=== PATIENT | male | born 1995 | race Caucasian/White ===

== ENCOUNTER 2018-09-16 18:40 | Emergency (ER) | payer MEDICAID ==
[~2018-09-16] VITALS: Ht 177.8 cm; Wt 70.4 kg
[~2018-09-16 18:40] MED LIST: DIPH25TA62 PO
[2018-09-16 18:47] VITALS: BP 117/70
[2018-09-16] MEDS ORDERED: acetaminophen 325mg tablet PO ONE (18:55)
[2018-09-16] MEDS ORDERED: ibuprofen tablet 400 MG TABLET PO ONE (20:55)
== END 2018-09-16 21:40 | disposition left against medical advice (07) ==
LOC: ER 18:40
DX: R50.9 Fever, unspecified (principal); Z53.21 Procedure and treatment not carried out due to patient leaving prior to being seen by health care provider

== ENCOUNTER 2021-02-21 22:01 | Inpatient (IN) | payer MEDICAID ==
[~2021-02-21] VITALS: Ht 175.3 cm; Wt 75.0 kg
[2021-02-21] MEDS ORDERED: ondansetron/PF 4mg/2ml inj IV ONE (22:10)
[2021-02-21] MEDS ORDERED: normal saline 1000ML IV soln IVB ONE (22:10)
[2021-02-21] MEDS ORDERED: naloxone 2mg/2ml inj 2 MG in normal saline 500ml IV soln 498 ML IV SCH (22:15)
--- NOTE | 2021-02-21 22:19 | NUR ---
Mary gtt ordered, but Dr. Xiong reports ok to hold gtt until pt showing signs of respiratory depression. ekg completed. pt remains alert and making needs know (give faviola a blanket, im cold". moaning intermittently and dozing off intermittently. dr. cerna at bedside to evaluate.
[2021-02-21 22:30] LABS: BASOPHILS % (AUTO) 0.3 % (0-1); EOSINOPHILS # (AUTO) 0.2 X10'3 (0-0.9); HEMOGLOBIN 14.7 g/dl (14.0-17.9); LYMPHOCYTES # (AUTO) 2.3 X10'3 (1.1-4.8); LYMPHOCYTES % (AUTO) 24.6 % (21-51); MEAN CORPUSCULAR HEMOGLOBIN 30.6 PG (27.0-31.0); MEAN CORPUSCULAR HGB CONC 34.2 g/dL (33.0-36.5); MEAN CORPUSCULAR VOLUME 89.7 FL (78-98); MEAN PLATELET VOLUME 7.2 FL (7.4-10.4); MONOCYTES # (AUTO) 0.6 X10'3 (0-0.9); NEUTROPHILS # (AUTO) 6.2 X10'3 (1.8-7.7); NEUTROPHILS % (AUTO) 67.1 % (42-75); PLATELET COUNT 265 X10'3 (140-440); RED CELL DISTRIBUTION WIDTH 12.5 % (11.5-14.5); WHITE BLOOD COUNT 9.2 X10'3 (4.5-11.0)
[2021-02-21 22:42] LABS: ALANINE AMINOTRANSFERASE 30 U/L (12-78); ALBUMIN 3.6 G/DL (3.4-5.0); ALBUMIN/GLOBULIN RATIO 0.9 (1.1-1.5); ALKALINE PHOSPHATASE 88 IU/L (46-116); ANION GAP 5 (8-16); ASPARTATE AMINO TRANSFERASE 20 U/L (10-37); BILIRUBIN,TOTAL 0.2 MG/DL (0.1-1.0); BLOOD UREA NITROGEN 15 MG/DL (7-18); BUN/CREATININE RATIO 13.4 (5.4-32.0); CALCIUM 8.6 MG/DL (8.5-10.1); CHLORIDE 106 MMOL/L (99-107); CREATININE 1.12 MG/DL (0.60-1.10); GLUCOSE 99 MG/DL (70-104); POTASSIUM 3.9 MMOL/L (3.5-5.1); SODIUM 141 MMOL/L (135-145); TOTAL CARBON DIOXIDE 30.5 MMOL/L (24-32); TOTAL PROTEIN 7.4 G/DL (6.4-8.2); eGFR 81 ML/MIN
--- NOTE | 2021-02-21 22:52 | NUR ---
POISON CONTROL CALLED. RECOMMENT TO WATCH PATIENT OVER NIGHT AND AT LEASE FOR 4-6 HRS AFTER THE LAST NARCAN DOSE. PT IS SYMPTOMATIC FROM THE OVERDOSE, NO CHARCOL ADVISED. IF MD WANTS, OK TO TO CT OF ABDOMEN TO VISUALIZE THE "BAGGIE", BUT THIS WOULD NOT CHANGE THE PLAN OF CARE OF OBSERVATION AND NARCAN PRN.
[2021-02-21 22:53] LABS: CKMB RELATIVE INDEX 0.9 RATIO (0-2.5); CREATINE KINASE 152 U/L (39-308); ETHANOL < 0.010 GM/DL (0.0-0.010)
[2021-02-21 22:55] LABS: ACETAMINOPHEN < 2.0 UG/ML (10-30)
[2021-02-22] MEDS ORDERED: HYDROcodone/acetaminophen 5mg/325mg tablet PO PRN (01:20)
[2021-02-22] MEDS ORDERED: morphine 2 MG/ML inj. syringe IV PRN ×2 (01:20)
[2021-02-22] MEDS ORDERED: bisacodyl 10mg suppository rectal RC PRN (01:20)
[2021-02-22] MEDS ORDERED: diphenhydrAMINE 50 mg/ml inj IV PRN (01:20)
[2021-02-22] MEDS ORDERED: HYDROmorphone inj. 0.5 MG/0.5 ML DISP.SYRIN IV PRN (01:20)
[2021-02-22] MEDS ORDERED: mag hydrox/Alum hydrox/simeth 30ml oral suspension PO PRN (01:20)
[2021-02-22] MEDS ORDERED: ondansetron/PF 4mg/2ml inj IV PRN (01:20)
[2021-02-22] MEDS ORDERED: dextrose 5%-1/2 normal saline 1,000 ML IV SCH (01:20)
[2021-02-22] MEDS ORDERED: diphenhydrAMINE 25mg capsule PO PRN (01:20)
[2021-02-22] MEDS ORDERED: acetaminophen 325mg tablet PO PRN ×2 (01:20)
[2021-02-22] MEDS ORDERED: magnesium hydroxide 30ml (MOM) UD suspension PO PRN (01:20)
[2021-02-22] MEDS ORDERED: acetaminophen 650mg rectal suppository RC PRN (01:20)
[2021-02-22] MEDS ORDERED: ondansetron 4mg rapidly disintigrating tab PO PRN (01:20)
[2021-02-22 01:47] LABS: HEMOGLOBIN A1C 5.4 % (4.5-6.2)
[2021-02-22 01:57] LABS: MAGNESIUM 2.2 MG/DL (1.5-2.4); PHOSPHORUS 3.5 MG/DL (2.3-4.5)
[2021-02-22 01:59] LABS: PARTIAL THROMBOPLASTIN TIME 28 SECONDS (22-32)
[2021-02-22 04:00] VITALS: BP 107/56
--- NOTE | 2021-02-22 05:08 | NUR ---
Patient in room PCU 3027. I have received report from Vanna JERONIMO and had the opportunity to ask questions and assume patient care.
[2021-02-22 06:00] VITALS: BP 109/54
--- NOTE | 2021-02-22 06:00 | NUR ---
Patient in room PCU 3027. I have received report from Matias JERONIMO and had the opportunity to ask questions and assume patient care.
--- NOTE | 2021-02-22 06:20 | NUR ---
Problems reprioritized. Patient report given, questions answered & plan of care reviewed with Nereyda RN.
[2021-02-22] MEDS ORDERED: docusate sod 100mg capsule PO SCH (08:00)
[2021-02-22] MEDS ORDERED: pantoprazole 40 MG vial IV SCH (08:00)
[2021-02-22] MEDS ORDERED: heparin, porcine 5000 units/ml vial SQ SCH (08:00)
[2021-02-22] MEDS ORDERED: naloxone 0.4 mg/ml inj ONE (09:00)
[2021-02-22] MEDS ORDERED: sod chloride 0.9% 10ml flush syringe IV ONE (09:00)
--- NOTE | 2021-02-22 09:37 | NUR ---
Spoke with Jorge Alberto from poison control. Reviewed pt status and answered all questions. At this point, poison control will be signing off of the case, instructions to continue to monitor respiratory and neurological status and intervene with Narcan if necessary, although unlikely at this time.
[2021-02-22 11:00] VITALS: BP 98/70
[2021-02-22 11:27] LABS: CLARITY,URINE CLEAR (Clear); COLOR,URINE YELLOW (Yellow); GLUCOSE, URINE NEGATIVE (Neg); KETONES,URINE NEGATIVE (Neg); LEUKOCYTE ESTERASE ,URINE NEGATIVE (Neg); NITRITES, URINE NEGATIVE (Neg); OCCULT BLOOD,URINE NEGATIVE (Neg); PH,URINE 7.5 (4.8-8.0); PROTEIN,URINE NEGATIVE (Neg); UROBILINOGEN,URINE 0.2 E.U/dL (0.2-1.0)
[2021-02-22 11:33] LABS: UA COLLECTION TYPE VOIDED
--- NOTE | 2021-02-22 11:37 | NUR ---
Pt coming up to nurses station saying he will pull out IV's because he needs to "check out" because his "girlfriend" requests that he goes now as it is inconvenient for her schedule to stay. Will print paperwork.
[2021-02-22 11:38] LABS: URINE AMPHETAMINE SCREEN POSITIVE (Neg); URINE BARBITUATE SCREEN NEGATIVE (Neg); URINE BENZODIAZEPINES SCREEN NEGATIVE (Neg); URINE CANNABINOID SCREEN NEGATIVE (Neg); URINE COCAINE SCREEN NEGATIVE (Neg); URINE METHADONE SCREEN NEGATIVE (Neg); URINE OPIATE SCREEN POSITIVE (Neg); URINE PHENCYCLIDINE SCREEN NEGATIVE (Neg)
--- NOTE | 2021-02-22 11:45 | NUR ---
Another RN assisted with discharge, removing pt's IV's. Notified pt that this RN would print out paperwork momentarily and he needed to wait. When this RN returned to room, pt had left without signing paperwork. No education or discharge paperwork was able to be provided as patient refused.
--- NOTE | 2021-02-22 11:48 | NUR ---
Called pharmacy to notify that he left without getting his home meds from pharmacy. Pharmacy to call pt to notify of his doxycycline that is in pharmacy.
[2021-02-22] MEDS ORDERED: temazepam 15mg capsule PO PRN (21:00)
== END 2021-02-22 11:52 | disposition home or self-care (01) | DRG 816 ==
LOC: ER 22:02 → ED HOLD 02-22 01:19 → UNDOADMIN 02-22 01:19 → ED HOLD 02-22 05:02 → PCU 3S 02-22 05:02
PROVIDERS: ADMIT Family Medicine; ATTEND Internal Medicine
DX: T40.1X1A Poisoning by heroin, accidental (unintentional), initial encounter (principal); J96.01 Acute respiratory failure with hypoxia; E86.0 Dehydration; E86.1 Hypovolemia; I95.9 Hypotension, unspecified; I10 Essential (primary) hypertension; Y92.89 Other specified places as the place of occurrence of the external cause
CPT/HCPCS: 36415; 70450; 71045; 74176; 80053; 80305; 80320; 80329; 81003; 82550; 82553; 83036; 83735; 83880; 84100; 84443; 85025; 85610; 85730; 87081; 93005; 96361; 96374; 99291; C9113; G0378; J2310; J2405; J7030

== ENCOUNTER 2021-11-11 18:31 | Emergency (ER) | payer MEDICAID ==
[~2021-11-11] VITALS: Ht 175.3 cm; Wt 81.8 kg
[2021-11-11 18:53] VITALS: BP 119/64
[2021-11-11] MEDS ORDERED: ONDA4TAB12 PO (19:16)
== END 2021-11-11 21:12 | disposition home or self-care (01) ==
LOC: ER 18:32
DX: B34.9 Viral infection, unspecified (principal); Z20.822 Contact with and (suspected) exposure to COVID-19; Z88.8 Allergy status to other drugs, medicaments and biological substances; Z79.899 Other long term (current) drug therapy
CPT/HCPCS: 87502; 87503; 87635; 99283; C9803

== ENCOUNTER 2023-09-23 11:12 | Emergency (ER) | payer MEDICAID ==
[~2023-09-23] VITALS: Ht 175.3 cm; Wt 84.0 kg
[~2023-09-23 11:12] MED LIST changes: -DIPH25TA62 PO; +ONDA4TAB12 PO
[2023-09-23 11:16] VITALS: BP 142/72; PULSE 93; RESP 16; TEMP 98; O2SAT 100
== END 2023-09-23 12:53 | disposition home or self-care (01) ==
LOC: ER 11:12
DX: F15.10 Other stimulant abuse, uncomplicated (principal); F11.10 Opioid abuse, uncomplicated; Z88.8 Allergy status to other drugs, medicaments and biological substances; Z79.899 Other long term (current) drug therapy
CPT/HCPCS: 99281

== ENCOUNTER 2023-10-04 13:02 | Emergency (ER) | payer MEDICAID ==
[~2023-10-04] VITALS: Ht 175.3 cm; Wt 77.3 kg
[2023-10-04 13:53] VITALS: TEMP 98.7
[2023-10-04 14:48] VITALS: BP 130/77; PULSE 89; O2SAT 100
[2023-10-04] MEDS ORDERED: bacitracin 15gm ointment TP ONE (15:20)
[2023-10-04] MEDS ORDERED: IBUP-1984 PO (15:51)
[2023-10-04] MEDS ORDERED: HYDR-3965 PO (15:51)
[2023-10-04 16:51] VITALS: RESP 18
== END 2023-10-04 16:53 | disposition home or self-care (01) ==
LOC: ER 13:02
DX: S82.832A Other fracture of upper and lower end of left fibula, initial encounter for closed fracture (principal); S80.812A Abrasion, left lower leg, initial encounter; Z76.0 Encounter for issue of repeat prescription; Z88.8 Allergy status to other drugs, medicaments and biological substances; Z79.899 Other long term (current) drug therapy; X58.XXXA Exposure to other specified factors, initial encounter; Y93.89 Activity, other specified; Y92.89 Other specified places as the place of occurrence of the external cause; Y99.8 Other external cause status
CPT/HCPCS: 73610; 99283; A6258; A6446; A6449

== ENCOUNTER 2023-12-23 09:15 | Emergency (ER) | payer MEDICAID ==
[~2023-12-23] VITALS: Ht 177.8 cm; Wt 87.6 kg
[2023-12-23 09:27] VITALS: BP 149/93; PULSE 83; RESP 16; TEMP 99.4; O2SAT 98
[2023-12-23] MEDS ORDERED: CLIN300C54 PO (11:09)
[2023-12-23] MEDS ORDERED: BENZ9GEL TOP (11:09)
== END 2023-12-23 11:16 | disposition home or self-care (01) ==
LOC: ER 09:15
DX: K04.7 Periapical abscess without sinus (principal); Z88.8 Allergy status to other drugs, medicaments and biological substances; Z79.899 Other long term (current) drug therapy
CPT/HCPCS: 99283